=== PATIENT | female | born 1940 | race African-American/Black ===

== ENCOUNTER 2021-02-10 09:23 | Inpatient (IN) | payer OTHER ==
[~2021-02-10] VITALS: Ht 162.6 cm; Wt 72.1 kg
[~2021-02-10 09:23] MED LIST: AMLO10TA80 PO; ASPI-1497 PO; CARV12.545 PO; FOLI-43 PO; FURO40TA5 PO; INSU300I SQ; REPA0.5T5 PO
[2021-02-10 10:57] LABS: BASOPHILS % 0.6 % (0.0-2.0); EOSINOPHILS % 3.1 % (0.0-5.0); HEMATOCRIT. 39.9 % (36.0-48.0); HEMOGLOBIN. 12.9 g/dL (12.0-16.0); LYMPHOCYTES % 24.4 % (20.0-50.0); MEAN CORPUSCULAR HEMOGLOBIN 23.1 pg (28.0-32.0); MEAN CORPUSCULAR VOLUME 71.1 fL (81.0-99.0); MEAN PLATELET VOLUME 7.9 fl (7.4-10.4); MONOCYTES % 10.9 % (2.0-8.0); PLATELET 246 x1000/uL (130-400); RED BLOOD CELL COUNT 5.61 mill/uL (4.2-5.4); RED CELL DISTRIBUTION WIDTH 19.7 % (11.6-14.6)
[2021-02-10 11:02] LABS: CHLORIDE 108 mEq/L (98-107)
[2021-02-10 11:05] LABS: ETHANOL BLOOD < 10 mg/dL
[2021-02-10 11:11] LABS: CREATINE KINASE 39 IU/L (26-192)
[2021-02-10] MEDS ORDERED: DIPHENHYDRAMINE 50MG/ML VIAL IV PRN (20:45)
[2021-02-10] MEDS ORDERED: DEXTROSE 50% WATER 50ML SYRINGE IV PRN (20:45)
[2021-02-10] MEDS ORDERED: ACETAMINOPHEN 325MG TABLET PO PRN (20:45)
[2021-02-10] MEDS ORDERED: CLONIDINE 0.1MG TABLET PO PRN (20:45)
[2021-02-10] MEDS ORDERED: ONDANSETRON HCL 4MG/2ML INJ IV PRN (20:45)
[2021-02-10] MEDS ORDERED: MAGNESIUM/ALUMINUM HYDROXIDE/SIMETHICONE 30ML UDC PO PRN (20:45)
[2021-02-10] MEDS ORDERED: LORAZEPAM 0.5MG TABLET PO PRN (20:45)
[2021-02-10] MEDS ORDERED: ZOLPIDEM TARTRATE 5MG TABLET PO PRN (20:45)
[2021-02-10] MEDS: BLOOD SUGAR DIAGNOSTIC STRIP TEST SCH (21:00)
[2021-02-10] MEDS: INSULIN LISPRO 100 UNITS/ML SUBCUT SCH (21:00)
[2021-02-10] MEDS ORDERED: INSULIN GLARGINE UD 100 UNITS/ML SYR SUBCUT SCH (22:00)
[2021-02-10] MEDS: FAMOTIDINE 20MG TABLET PO SCH (22:33)
[2021-02-10] MEDS: CARVEDILOL 6.25 MG TABLET PO SCH (22:33)
[2021-02-10] MEDS: ATORVASTATIN CALCIUM 40MG TABLET PO SCH (22:33)
[2021-02-10] MEDS: ENOXAPARIN 30MG/0.3ML SYR SUBCUT SCH (22:34)
[2021-02-10] MEDS: SODIUM CHLORIDE 0.45% 1,000 ML IV SCH (22:37)
[2021-02-10 23:00] VITALS: BP 123/84
[2021-02-11] MEDS ORDERED: CLOP75TA33 PO (00:15)
[2021-02-11] MEDS ORDERED: LISI40TA13 PO (00:15)
[2021-02-11] MEDS ORDERED: ATOR-2 PO (00:15)
[2021-02-11 04:00] VITALS: BP 123/69
[2021-02-11] MEDS: BLOOD SUGAR DIAGNOSTIC STRIP TEST SCH ×4 (06:04→21:59)
[2021-02-11] MEDS: INSULIN LISPRO 100 UNITS/ML SUBCUT SCH ×4 (07:31→21:00)
[2021-02-11 08:00] VITALS: BP 99/71
[2021-02-11] MEDS: ASPIRIN 81MG EC TABLET PO SCH (08:50)
[2021-02-11] MEDS: CARVEDILOL 6.25 MG TABLET PO SCH ×2 (08:51→21:00)
[2021-02-11] MEDS: AMLODIPINE 5MG TABLET PO SCH (08:51)
[2021-02-11 12:00] VITALS: BP_SYST 129; BP_SYST 98; BP_DIAS 67; BP_DIAS 69
[2021-02-11 12:45] LABS: BASOPHILS % 0.3 % (0.0-2.0); EOSINOPHILS % 3.3 % (0.0-5.0); HEMATOCRIT. 37.9 % (36.0-48.0); HEMOGLOBIN. 12.3 g/dL (12.0-16.0); LYMPHOCYTES % 20.1 % (20.0-50.0); MEAN CORPUSCULAR HEMOGLOBIN 23.2 pg (28.0-32.0); MEAN CORPUSCULAR VOLUME 71.6 fL (81.0-99.0); MEAN PLATELET VOLUME 8.9 fl (7.4-10.4); MONOCYTES % 11.5 % (2.0-8.0); NEUTROPHILS % 64.8 % (40.0-76.0); PLATELET 216 x1000/uL (130-400); RED BLOOD CELL COUNT 5.29 mill/uL (4.2-5.4); RED CELL DISTRIBUTION WIDTH 19.4 % (11.6-14.6)
[2021-02-11 12:52] LABS: CHLORIDE 108 mEq/L (98-107)
[2021-02-11 13:45] LABS: INR 1.1; PROTHROMBIN TIME 11.9 sec (9.6-11.0)
[2021-02-11 16:00] VITALS: BP 121/64
[2021-02-11] MEDS: SODIUM CHLORIDE 0.45% 1,000 ML IV SCH (16:48)
[2021-02-11 20:00] VITALS: BP 99/71
[2021-02-11] MEDS: ATORVASTATIN CALCIUM 40MG TABLET PO SCH (21:59)
[2021-02-11] MEDS: FAMOTIDINE 20MG TABLET PO SCH (21:59)
[2021-02-11] MEDS: ENOXAPARIN 30MG/0.3ML SYR SUBCUT SCH (22:00)
[2021-02-12] VITALS (7 sets, daily range): BP systolic 100–130; BP diastolic 64–77
[2021-02-12 00:50] LABS: CLARITY URINE CLOUDY (CLEAR); COLOR URINE YELLOW (YELLOW); KETONES URINE NEGATIVE (NEGATIVE); LEUKOCYTE ESTERASE URINE TRACE (NEGATIVE); NITRITE URINE NEGATIVE (NEGATIVE); OCCULT BLOOD URINE 2+ (NEGATIVE); PROTEIN URINE TRACE (NEGATIVE); SPECIFIC GRAVITY URINE 1.013 (1.005-1.030); UROBILINOGEN URINE 0.2 E.U./dL (0.2-1.0)
[2021-02-12] MEDS: BLOOD SUGAR DIAGNOSTIC STRIP TEST SCH ×4 (06:39→21:32)
[2021-02-12] MEDS: INSULIN LISPRO 100 UNITS/ML SUBCUT SCH ×4 (07:35→21:00)
[2021-02-12] MEDS: ASPIRIN 81MG EC TABLET PO SCH (09:23)
[2021-02-12] MEDS: AMLODIPINE 5MG TABLET PO SCH (09:23)
[2021-02-12] MEDS: CARVEDILOL 6.25 MG TABLET PO SCH ×2 (09:24→21:31)
[2021-02-12] MEDS ORDERED: CEFTRIAXONE 1 G PREMIX 50 ML IV SCH (10:45)
[2021-02-12] MEDS: CEFTRIAXONE 1,000 MG in DEXTROSE 5% WATER 50 ML IV SCH (13:00)
[2021-02-12 18:13] LABS: HEMATOCRIT. 37.4 % (36.0-48.0); HEMOGLOBIN. 11.9 g/dL (12.0-16.0); MEAN CORPUSCULAR HEMOGLOBIN 23.1 pg (28.0-32.0); MEAN CORPUSCULAR VOLUME 72.6 fL (81.0-99.0); PLATELET 182 x1000/uL (130-400); RED BLOOD CELL COUNT 5.15 mill/uL (4.2-5.4); RED CELL DISTRIBUTION WIDTH 19.5 % (11.6-14.6)
[2021-02-12 19:20] LABS: CHLORIDE 110 mEq/L (98-107)
[2021-02-12 20:58] LABS: PLATELET ESTIMATE NORMAL
[2021-02-12] MEDS: ENOXAPARIN 30MG/0.3ML SYR SUBCUT SCH (21:31)
[2021-02-12] MEDS: FAMOTIDINE 20MG TABLET PO SCH (21:31)
[2021-02-12] MEDS: ATORVASTATIN CALCIUM 40MG TABLET PO SCH (21:32)
[2021-02-13] VITALS (7 sets, daily range): BP systolic 93–123; BP diastolic 57–79
[2021-02-13] MEDS: BLOOD SUGAR DIAGNOSTIC STRIP TEST SCH ×4 (06:34→20:27)
[2021-02-13] MEDS: ACETAMINOPHEN 325MG TABLET PO PRN (06:38)
[2021-02-13] MEDS: INSULIN LISPRO 100 UNITS/ML SUBCUT SCH ×4 (07:22→20:28)
[2021-02-13] MEDS: ASPIRIN 81MG EC TABLET PO SCH (08:23)
[2021-02-13] MEDS: CARVEDILOL 6.25 MG TABLET PO SCH ×2 (08:42→20:38)
[2021-02-13] MEDS: AMLODIPINE 5MG TABLET PO SCH (08:43)
[2021-02-13] MEDS: CEFTRIAXONE 1,000 MG in DEXTROSE 5% WATER 50 ML IV SCH (14:13)
[2021-02-13] MEDS ORDERED: NALOXONE HCL 0.4MG/ML VIAL IV PRN (17:15)
[2021-02-13] MEDS: FAMOTIDINE 20MG TABLET PO SCH (20:38)
[2021-02-13] MEDS: ENOXAPARIN 30MG/0.3ML SYR SUBCUT SCH (20:38)
[2021-02-13] MEDS: ATORVASTATIN CALCIUM 40MG TABLET PO SCH (20:38)
[2021-02-14] MEDS: HYDROCODONE/ACETAMINOPHEN 5/325MG TABLET PO PRN ×2 (00:02→21:56)
[2021-02-14 00:47] VITALS: BP 109/70
[2021-02-14 04:30] VITALS: BP 111/68
[2021-02-14] MEDS: BLOOD SUGAR DIAGNOSTIC STRIP TEST SCH ×4 (06:30→21:56)
[2021-02-14] MEDS: INSULIN LISPRO 100 UNITS/ML SUBCUT SCH ×4 (07:50→21:00)
[2021-02-14] MEDS: ASPIRIN 81MG EC TABLET PO SCH (09:25)
[2021-02-14] MEDS: CARVEDILOL 6.25 MG TABLET PO SCH ×2 (09:26→21:55)
[2021-02-14] MEDS: AMLODIPINE 5MG TABLET PO SCH (09:26)
[2021-02-14 09:51] LABS: BASOPHILS % 0.5 % (0.0-2.0); EOSINOPHILS % 5.6 % (0.0-5.0); HEMATOCRIT. 35.6 % (36.0-48.0); HEMOGLOBIN. 11.4 g/dL (12.0-16.0); LYMPHOCYTES % 25.4 % (20.0-50.0); MEAN CORPUSCULAR HEMOGLOBIN 23.2 pg (28.0-32.0); MEAN CORPUSCULAR VOLUME 72.5 fL (81.0-99.0); MEAN PLATELET VOLUME 8.8 fl (7.4-10.4); MONOCYTES % 13.9 % (2.0-8.0); NEUTROPHILS % 54.6 % (40.0-76.0); PLATELET 168 x1000/uL (130-400); RED BLOOD CELL COUNT 4.91 mill/uL (4.2-5.4); RED CELL DISTRIBUTION WIDTH 19.6 % (11.6-14.6)
[2021-02-14 12:00] VITALS: BP 116/62
[2021-02-14] MEDS: CEFTRIAXONE 1,000 MG in DEXTROSE 5% WATER 50 ML IV SCH (12:56)
[2021-02-14 16:00] VITALS: BP 127/67
[2021-02-14 20:00] VITALS: BP 113/60
[2021-02-14] MEDS: FAMOTIDINE 20MG TABLET PO SCH (21:55)
[2021-02-14] MEDS: ATORVASTATIN CALCIUM 40MG TABLET PO SCH (21:55)
[2021-02-14] MEDS: ENOXAPARIN 30MG/0.3ML SYR SUBCUT SCH (22:00)
[2021-02-15] VITALS: BP 125/74
[2021-02-15 04:00] VITALS: BP 137/82
[2021-02-15] MEDS: HYDROCODONE/ACETAMINOPHEN 5/325MG TABLET PO PRN ×2 (07:09→22:19)
[2021-02-15] MEDS: BLOOD SUGAR DIAGNOSTIC STRIP TEST SCH ×4 (07:20→21:00)
[2021-02-15] MEDS: INSULIN LISPRO 100 UNITS/ML SUBCUT SCH ×4 (07:50→21:00)
[2021-02-15 08:00] VITALS: BP 140/75
[2021-02-15] MEDS: ASPIRIN 81MG EC TABLET PO SCH (09:19)
[2021-02-15] MEDS: AMLODIPINE 5MG TABLET PO SCH (09:19)
[2021-02-15] MEDS: CARVEDILOL 6.25 MG TABLET PO SCH ×2 (09:19→21:00)
[2021-02-15 12:00] VITALS: BP 141/73
[2021-02-15] MEDS: CEFTRIAXONE 1,000 MG in DEXTROSE 5% WATER 50 ML IV SCH (13:03)
[2021-02-15 16:00] VITALS: BP 107/56
[2021-02-15 20:39] VITALS: BP 109/71
[2021-02-15] MEDS: ATORVASTATIN CALCIUM 40MG TABLET PO SCH (21:56)
[2021-02-15] MEDS: FAMOTIDINE 20MG TABLET PO SCH (21:56)
[2021-02-15] MEDS: ENOXAPARIN 30MG/0.3ML SYR SUBCUT SCH (23:37)
[2021-02-16 00:27] VITALS: BP 140/82
[2021-02-16 04:00] VITALS: BP 133/77
[2021-02-16] MEDS: INSULIN LISPRO 100 UNITS/ML SUBCUT SCH ×4 (07:50→21:00)
[2021-02-16 08:00] VITALS: BP 110/91
[2021-02-16] MEDS: ASPIRIN 81MG EC TABLET PO SCH (11:29)
[2021-02-16] MEDS: AMLODIPINE 5MG TABLET PO SCH (11:29)
[2021-02-16] MEDS: CARVEDILOL 6.25 MG TABLET PO SCH ×2 (11:29→22:17)
[2021-02-16] MEDS: CEFTRIAXONE 1,000 MG in DEXTROSE 5% WATER 50 ML IV SCH (11:41)
[2021-02-16 12:00] VITALS: BP 153/84
[2021-02-16] MEDS: BLOOD SUGAR DIAGNOSTIC STRIP TEST SCH ×3 (12:20→21:00)
[2021-02-16 16:00] VITALS: BP 116/65
[2021-02-16 20:00] VITALS: BP 119/69
[2021-02-16] MEDS: ATORVASTATIN CALCIUM 40MG TABLET PO SCH (22:13)
[2021-02-16] MEDS: ENOXAPARIN 30MG/0.3ML SYR SUBCUT SCH (22:13)
[2021-02-16] MEDS: FAMOTIDINE 20MG TABLET PO SCH (22:13)
[2021-02-17] VITALS: BP 130/71
[2021-02-17 04:00] VITALS: BP 138/75
[2021-02-17] MEDS: BLOOD SUGAR DIAGNOSTIC STRIP TEST SCH ×4 (07:20→21:53)
[2021-02-17] MEDS: INSULIN LISPRO 100 UNITS/ML SUBCUT SCH ×4 (07:50→22:40)
[2021-02-17 08:00] VITALS: BP 130/77
[2021-02-17] MEDS: CARVEDILOL 6.25 MG TABLET PO SCH ×2 (10:28→21:00)
[2021-02-17] MEDS: AMLODIPINE 5MG TABLET PO SCH (10:29)
[2021-02-17] MEDS: ASPIRIN 81MG EC TABLET PO SCH (10:30)
[2021-02-17 12:00] VITALS: BP 131/71
[2021-02-17 16:00] VITALS: BP 128/72
[2021-02-17 20:00] VITALS: BP 98/61
[2021-02-17] MEDS: FAMOTIDINE 20MG TABLET PO SCH (21:52)
[2021-02-17] MEDS: ATORVASTATIN CALCIUM 40MG TABLET PO SCH (21:52)
[2021-02-17] MEDS: ENOXAPARIN 30MG/0.3ML SYR SUBCUT SCH (21:52)
[2021-02-18] VITALS: BP 108/75
[2021-02-18 04:00] VITALS: BP 124/85
[2021-02-18 07:40] LABS: HEMATOCRIT. 34.4 % (36.0-48.0); HEMOGLOBIN. 11.3 g/dL (12.0-16.0); MEAN CORPUSCULAR HEMOGLOBIN 23.3 pg (28.0-32.0); MEAN CORPUSCULAR VOLUME 70.6 fL (81.0-99.0); MEAN PLATELET VOLUME 8.4 fl (7.4-10.4); PLATELET 184 x1000/uL (130-400); RED BLOOD CELL COUNT 4.87 mill/uL (4.2-5.4); RED CELL DISTRIBUTION WIDTH 19.2 % (11.6-14.6)
[2021-02-18] MEDS: INSULIN LISPRO 100 UNITS/ML SUBCUT SCH ×4 (07:50→21:00)
[2021-02-18] MEDS: ASPIRIN 81MG EC TABLET PO SCH (09:54)
[2021-02-18] MEDS: AMLODIPINE 5MG TABLET PO SCH (09:55)
[2021-02-18] MEDS: CARVEDILOL 6.25 MG TABLET PO SCH ×2 (09:55→21:00)
[2021-02-18 14:25] LABS: PLATELET ESTIMATE NORMAL
[2021-02-18 20:00] VITALS: BP 107/69
[2021-02-18] MEDS: ATORVASTATIN CALCIUM 40MG TABLET PO SCH (21:00)
[2021-02-18] MEDS: FAMOTIDINE 20MG TABLET PO SCH (21:00)
[2021-02-18] MEDS: BLOOD SUGAR DIAGNOSTIC STRIP TEST SCH (21:00)
[2021-02-18] MEDS: ENOXAPARIN 30MG/0.3ML SYR SUBCUT SCH (22:40)
[2021-02-19] VITALS (7 sets, daily range): BP systolic 100–119; BP diastolic 52–69
[2021-02-19] MEDS: ACETAMINOPHEN 325MG TABLET PO PRN ×2 (05:47→22:07)
[2021-02-19] MEDS: BLOOD SUGAR DIAGNOSTIC STRIP TEST SCH ×4 (06:47→21:59)
[2021-02-19] MEDS: INSULIN LISPRO 100 UNITS/ML SUBCUT SCH ×4 (07:03→21:00)
[2021-02-19] MEDS: AMLODIPINE 5MG TABLET PO SCH (09:00)
[2021-02-19] MEDS: CARVEDILOL 6.25 MG TABLET PO SCH ×2 (09:00→21:59)
[2021-02-19] MEDS: ASPIRIN 81MG EC TABLET PO SCH (09:21)
[2021-02-19] MEDS: ATORVASTATIN CALCIUM 40MG TABLET PO SCH (21:59)
[2021-02-19] MEDS: FAMOTIDINE 20MG TABLET PO SCH (21:59)
[2021-02-19] MEDS: ENOXAPARIN 30MG/0.3ML SYR SUBCUT SCH (22:03)
[2021-02-20] VITALS: BP 102/63
== END 2021-02-19 22:28 | DRG 70 ==
LOC: ER 09:23 → MICUSO 12:31 → 6WST 19:40 → 6EST 02-14 11:08
PROVIDERS: ADMIT Internal Medicine; ATTEND Internal Medicine
DX: G93.40 Encephalopathy, unspecified (principal); N17.0 Acute kidney failure with tubular necrosis; I13.0 Hypertensive heart and chronic kidney disease with heart failure and stage 1 through stage 4 chronic kidney disease, or unspecified chronic kidney disease; I50.22 Chronic systolic (congestive) heart failure; N39.0 Urinary tract infection, site not specified; G90.8 Other disorders of autonomic nervous system; E11.22 Type 2 diabetes mellitus with diabetic chronic kidney disease; R62.7 Adult failure to thrive; E78.00 Pure hypercholesterolemia, unspecified; E78.5 Hyperlipidemia, unspecified; E86.0 Dehydration; Z20.822 Contact with and (suspected) exposure to COVID-19; F03.90 Unspecified dementia, unspecified severity, without behavioral disturbance, psychotic disturbance, mood disturbance, and anxiety; I25.10 Atherosclerotic heart disease of native coronary artery without angina pectoris; N18.9 Chronic kidney disease, unspecified; Z86.73 Personal history of transient ischemic attack (TIA), and cerebral infarction without residual deficits; Z79.82 Long term (current) use of aspirin; Z79.899 Other long term (current) drug therapy; Z68.27 Body mass index [BMI] 27.0-27.9, adult; Z79.02 Long term (current) use of antithrombotics/antiplatelets; Z79.4 Long term (current) use of insulin
CPT/HCPCS: 36415; 71045; 72170; 74018; 80048; 80053; 80307; 80320; 80329; 81003; 82140; 82550; 82962; 83036; 83605; 84443; 84484; 85025; 87426; 93005; 93880; 97162; 97530; 99285; C1893; J0696; J1650; J1815; J7060; G0480